=== PATIENT | female | born 1990 | race Hispanic/Latino ===

== ENCOUNTER 2018-11-17 14:24 | Emergency (ER) | payer BC ==
[2018-11-17 15:17] VITALS: BP 118/82; PULSE 80; RESP 18; TEMP 98.2; O2SAT 100
--- NOTE | 2018-11-17 16:07 | ED PDOC ---
HPI: Female Pain Time Seen by Provider: 11/17/18 16:01 Chief Complaint (Nursing): Female Genitourinary Chief Complaint (Provider): labial swelling History Per: Patient (28 y/o female sent by [facility] for evaluation of Bartholin's cyst ongoing. Cyst noted indurated yesterday and patient was advised sitz bath and clindamycin rx. Seen again today and sent to ED to see engraver rubber.) Past Medical History Reviewed: Historical Data, Nursing Documentation, Vital Signs Vital Signs: Last Vital Signs Temp 98.2 F 11/17/18 15:14 Pulse 80 11/17/18 15:14 Resp 18 11/17/18 15:14 BP 118/82 11/17/18 15:14 Pulse Ox 100 11/17/18 15:14 - Family History Family History: States: No Known Family Hx - Home Medications Home Medications: Ambulatory Orders Medication Instructions Recorded Amoxicillin/Clavulanate [Augmentin 1 tab PO BID #14 tab 11/17/18 875 MG-125 MG] Ibuprofen [Motrin] 600 mg PO Q8 PRN #21 tab 11/17/18 oxyCODONE/Acetaminophen [Percocet 1 ea PO Q6 PRN #5 tab 11/17/18 5/325 mg Tab] - Allergies Allergies/Adverse Reactions: Allergies Allergy/AdvReac Type Severity Reaction Status Date / Time No Known Allergies Allergy Verified 11/17/18 15:14 Review of Systems ROS Statement: Except As Marked, All Systems Reviewed And Found Negative Physical Exam - Reviewed Nursing Documentation Reviewed: Yes Vital Signs Reviewed: Yes - Physical Exam Appears: Positive for: Well, Non-toxic, No Acute Distress Head Exam: Positive for: ATRAUMATIC, NORMAL INSPECTION, NORMOCEPHALIC Skin: Positive for: Normal Color, Warm, DRY Eye Exam: Positive for: EOMI, Normal appearance, PERRL ENT: Positive for: Normal ENT Inspection Neck: Positive for: Normal, Painless ROM Cardiovascular/Chest: Positive for: Regular Rate, Rhythm Respiratory: Positive for: CNT, Normal Breath Sounds Gastrointestinal/Abdominal: Positive for: Normal Exam, Soft Pelvic Exam: Positive for: External Exam Normal (left labial region with moderate swelling and erythema. Fluctuance noted 1.5 cm) Back: Positive for: Normal Inspection Extremity: Positive for: Normal ROM Neurological/Psych: Positive for: Awake, Alert, Normal Tone - ECG O2 Sat by Pulse Oximetry: 100 - Progress ED Course And Treament: d/w Dr. Nieto. PATIENT SEEN BY HER IN ED. PATIENT DOES NOT HAVE BARTHOLIN'S CYST BUT SOFT TISSUE ABSCESS. WE WILL GIVE AUGMENTIN/MOTRIN/PERCOCET/ WOUND CX RECOMMENDED BY DR. NIETO AND SHE WILL F/U OUTPATIENT WITH DR NIETO ON SATURDAY OR WITH DR. LYNNE. Disposition - Clinical Impression Clinical Impression: Abscess - Patient ED Disposition Is Patient to be Admitted: No - Disposition Referrals: Cynthia Rosales MD [Staff Provider] - Disposition: Routine/Home Disposition Time: 16:58 Condition: FAIR Prescriptions: Amoxicillin/Clavulanate [Augmentin 875 MG-125 MG] 1 tab PO BID #14 tab Ibuprofen [Motrin] 600 mg PO Q8 PRN #21 tab PRN Reason: Pain, Moderate (4-7) oxyCODONE/Acetaminophen [Percocet 5/325 mg Tab] 1 ea PO Q6 PRN #5 tab PRN Reason: Pain, Severe (8-10) Instructions: Skin Abscess
--- NOTE | 2018-11-17 17:58 | CP.PCM.CON ---
History of Present Illness - History of Present Illness History of Present Illness: Patient is a 28 yo healthy female, currently training for half marathon, noticed Saturday following her run a small bump on lower left perineum. Patient thought that it was an infected hair follicle. Patient noticed that the area continued to expand, cause more pain. Patient presented to [facility], patient was instucted to come to ER for evaluation. Area began to spontaneously drain today. Patient otherwise denies fever, abdominal pain, N/V, no lightheadedness, no CP, no SOB. Patient has never presented with this before Past Patient History - Infectious Disease Hx of Infectious Diseases: None - Past Social History Smoking Status: Never Smoked - PSYCHIATRIC Hx Substance Use: No Meds Home Medications: Home Medication List Medication Instructions Recorded Confirmed Type Amoxicillin/Clavulanate [Augmentin 1 tab PO BID #14 tab 11/17/18 Rx 875 MG-125 MG] Ibuprofen [Motrin] 600 mg PO Q8 PRN #21 tab 11/17/18 Rx oxyCODONE/Acetaminophen [Percocet 1 ea PO Q6 PRN #5 tab 11/17/18 Rx 5/325 mg Tab] Allergies/Adverse Reactions: Allergies Allergy/AdvReac Type Severity Reaction Status Date / Time No Known Allergies Allergy Verified 11/17/18 15:14 Physical Exam - Head Exam Head Exam: ATRAUMATIC - Neck Exam Neck exam: Positive for: Normal Inspection - Respiratory Exam Respiratory Exam: NORMAL BREATHING PATTERN - Cardiovascular Exam Cardiovascular Exam: REGULAR RHYTHM - GI/Abdominal Exam GI & Abdominal Exam: Normal Bowel Sounds, Soft - Exam Additional comments: left perineum small hematoma with drainage noted from center, small amount of pustulant material, errythematous indurated tissue that is tracking down to left buttocks, painful to touch - Extremities Exam Extremities exam: Positive for: normal inspection Results - Vital Signs Recent Vital Signs: Last Vital Signs Temp 98.2 F 11/17/18 15:14 Pulse 80 11/17/18 15:14 Resp 18 11/17/18 15:14 BP 118/82 11/17/18 15:14 Pulse Ox 100 11/17/18 17:18 Assessment & Plan - Assessment and Plan (Free Text) Assessment: A/P 28 yo with vulvar hematoma vs soft tissue vulvar infection 1. Patient evaluated, likely has a vulvar hematoma that has developed from run kalin that is draining and possibly starting to become infected. Patient has pain on palpation, mostly serosanginous material that is being expressed. Tissue under hematoma errythematous and indurated 2. Discussed with patient that she needs close follow up. To discontinue running for now, multiple warm soaks through out the day with warm compresses. Patient was prescribed Clindamycin by [facility], encourage patient to continue and to also start Augmentin. Percocet/Motrin for pain 3. Patient to follow up in office in a few days. Pre-cautions such as fever, expansion, increased pain - come to ER immediately. 4. All questions answered. Consult appreciated - Date & Time Date: 11/17/18 Time: 17:58
== END 2018-11-17 18:20 | disposition home or self-care (01) ==
LOC: H.ER 14:24
DX: N76.4 Abscess of vulva (principal)